=== PATIENT | female | born 2000 | race Caucasian/White ===

== ENCOUNTER 2022-08-20 11:53 | Emergency (ER) | payer OTHER, SELFPAY ==
[2022-08-20] VITALS (9 sets, daily range): BP systolic 90–116; BP diastolic 54–71; PULSE 67–89; RESP 18; TEMP 36.6; O2SAT 97–99
--- NOTE | 2022-08-20 12:53 | DI.US.S_ITS ---
PROCEDURE: US PELVIC COMPLETE INDICATIONS: PELVIC PAIN. HISTORY OF CHLAMYDIA. TECHNIQUE: Real-time scanning was performed of the pelvic organs, with image documentation. Additional endovaginal scanning was necessary due to incomplete visualization of the adnexal and endometrial structures by transabdominal scanning. COMPARISON: None. FINDINGS: Uterus: Uterus is retroverted and normal in size at 6.4 x 3.2 x 4.2 cm. The myometrium is homogeneous. The endometrium measures 6.1 mm combined thickness. Ovaries: The right ovary measures 3.3 x 2.3 x 2.4 cm, with a calculated ovarian volume of 9.6 cc. The left ovary measures 2.4 x 2.2 x 2.5 cm, with a calculated ovarian volume of in 6.6 cc. The ovaries have a normal sonographic appearance. Greater than 12 follicles can be seen in each ovary. No adnexal masses are seen. Other: No pathologic free abdominal or pelvic fluid. IMPRESSION: Greater than 12 follicles are noted bilaterally, otherwise unremarkable. We strive to produce accurate, complete, and clear reports of imaging services. To assist us in improving patient care, this report was composed using standard report templates and voice recognition software. Therefore, it may contain abnormal punctuation, insertions and/or omissions. Occasional wrong-word or sound-alike substitutions may occur. Though we review the report and make efforts to correct it, we do recommend that the report be read carefully in proper context to recognize any text inaccuracies. Dictated by: Krissy Madrigal M.D. on 08/20/2022 at 14:17 Approved by: Krissy Madrigal M.D. on 08/20/2022 at 14:19
--- NOTE | 2022-08-20 12:54 | DI.CT.S_ITS ---
PROCEDURE: CT ABDOMEN PELVIS W CON INDICATIONS: LLQ, pelvic pain TECHNIQUE: After the administration of intravenous contrast, axial sections acquired from the lung bases to the pubic symphysis. Coronal and sagittal reformats were performed. For radiation dose reduction, the following was used: automated exposure control, adjustment of mA and/or kV according to patient size. COMPARISON: None. FINDINGS: Image quality: Excellent. Lung bases: Unremarkable. Heart: No significant findings. ABDOMEN: Liver: Unremarkable. Gallbladder: Unremarkable. Biliary ducts: Unremarkable. Pancreas: Unremarkable. Spleen: Unremarkable. Adrenal Glands: Unremarkable. Kidneys and Ureters: Unremarkable. Stomach and Bowel: There is no bowel obstruction. No gastric or small bowel wall thickening. Fecal stasis throughout the colon is seen. Appendix is visualized in right lower quadrant abdomen and is normal in size and appearance. No abscess collection. Peritoneum: No abnormal intraperitoneal fluid. No free air. Ventral Wall: No hernias. Abdominal Nodes: No retroperitoneal or mesenteric adenopathy by size criteria. Vessels: Aorta and inferior vena cava are normal in size. PELVIS: Pelvic Organs: Small bilateral ovarian cysts/dominant follicles are noted. Uterus is within normal limits. Bladder: Unremarkable. Pelvic Nodes: No enlarged lymph nodes. Miscellaneous: No hernias are seen. Bones: No suspicious bony lesions. No acute vertebral body compression fracture. IMPRESSION: 1. No bowel obstruction or abnormal bowel wall thickening. Normal appendix. Mild constipation. No abscess collection. No free fluid or free air. 2. No nephrolithiasis or hydronephrosis. No hydroureter. Normal appearing urinary bladder. 3. Suggestion of small bilateral ovarian cysts versus dominant follicles. Please correlate with ultrasound of pelvic findings. Dictated by: Scotty Cain M.D. on 08/20/2022 at 13:40 Approved by: Scotty Cain M.D. on 08/20/2022 at 13:53
[2022-08-20 13:07] LABS: Add Manual Diff / Slide Review NO; Basophils Absolute Auto 0 /uL (0-100); Basophils Percent Auto 0.6 % (0-2); Eosinophils Absolute Auto 100 /uL (0-450); Eosinophils Percent Auto 1.4 % (2-4); Hematocrit 37.9 % (36-46); Hemoglobin 13.1 g/dL (12.0-16.0); Lymphocytes Absolute Auto 1800 /uL (1100-4500); Lymphocytes Percent Auto 28.2 % (25-40); Mean Corpuscular HGB Conc 34.5 % (30-36); Mean Corpuscular Hemoglobin 29.6 PG (26-34); Mean Corpuscular Volume 85.8 fL (80-100); Monocytes Absolute Auto 600 /uL (0-900); Monocytes Percent Auto 8.6 % (3-14); Neutrophils Absolute Auto 4000 /uL (1500-7000); Neutrophils Percent Auto 61.2 % (50-75); Platelet Count 303 X10^3/uL (150-400); Red Blood Cell Count 4.42 X10^6/uL (4.0-5.2); Red Cell Distribution Width 12.1 % (11.6-14.8); White Blood Cell Count 6.5 X10^3/uL (4.5-11.0)
[2022-08-20 13:07] LABS: Appearance Urine UA CLEAR; Bilirubin Urine UA NEGATIVE (NEGATIVE); Color Urine UA ORANGE; Glucose Urine UA TRACE g/dL (Negative); Ketones Urine UA NEGATIVE (NEGATIVE); Leukocyte Esterase Urine UA NEGATIVE (NEGATIVE); Nitrite Urine UA POSITIVE (Negative); Occult Blood Urine UA NEGATIVE (Negative); Protein Urine UA TRACE (Negative); Specific Gravity Urine UA <=1.005 (1.000-1.035)
[2022-08-20 13:22] LABS: Alanine Aminotransferase 19 IU/L (<35); Albumin 4.4 g/dL (3.5-5.0); Albumin Globulin Ratio 1.5 (1.0-2.8); Alkaline Phosphatase 54 U/L (38-126); Aspartate Aminotransferase 30 IU/L (14-36); BUN Creatinine Ratio 9.9 (6-22); Bilirubin Total 0.9 mg/dL (0.2-1.3); Blood Urea Nitrogen 7 mg/dL (7-17); Calcium 8.5 mg/dL (8.4-10.2); Carbon Dioxide 25 mmol/L (22-32); Chloride 105 mmol/L (98-107); Estimated Glomerular Filt Rate > 60 mL/min (>60); Glucose 78 mg/dL (70-100); HEMOLYSIS 15 (0-50); Lipase 63 U/L (23-300); Potassium 3.9 mmol/L (3.4-5.1); Sodium 137 mmol/L (137-145); Total Protein 7.4 g/dL (6.3-8.2)
[2022-08-20 13:26] LABS: C-Reactive Protein Quant < 0.5 mg/dL (<1.0)
[2022-08-20 13:32] LABS: Bacteria Urine Few (2-10); RBC Urine None Seen (0-5/HPF); WBC Urine None Seen (0-5/HPF)
[2022-08-20 13:33] LABS: Culture Indicated Urine Specimen Cultured; Squamous Epithelial Cell Urine 1-5 /HPF (0-5/HPF)
[2022-08-20 14:17] LABS: Erythrocyte Sedimentation Rate 5 MM/HR (0-20)
[2022-08-20] MEDS: KETOROLAC 30 MG/ML VIAL 15 MG IV (14:52)
--- NOTE | 2022-08-20 16:33 | ED_ITS ---
HPI - Abdominal Pain <Erika Malcolm PA-C - Last Filed: 08/20/22 16:56> General Chief Complaint: Abdominal Pain Stated Complaint: sharp pain in LT lower Quad Time Seen by Provider: 08/20/22 12:32 Source: patient Mode of arrival: Ambulatory History of Present Illness HPI narrative: 22-year-old female with past medical history chlamydia infection presents to the ED with left-sided pelvic pain, white vaginal discharge. Patient was seen for urinary symptoms 3 days ago by her doctor, diagnosed with a UTI and prescribed antibiotics for 3 days. Patient's left-sided pelvic pain started this morning, however patient says that she is had the white vaginal discharge for several weeks. Patient does endorse unprotected sex. Patient states she has had a chlamydia infection in 2019 and was treated with antibiotics for it. Patient denies fever, chills, nausea, vomiting, flank pain, lightheadedness, dizziness, syncope. Patient's LMP was 08/02/2022, patient states it was a shorter than usual period. Patient is concern about sexually transmitted disease, PID. Related Data Previous Rx's Medication Instructions Recorded doxycycline hyclate 100 mg capsule 100 mg PO BID 14 days #28 caps 08/20/22 metronidazole 500 mg tablet 500 mg PO BID 14 days #28 tabs 08/20/22 Allergies Allergy/AdvReac Type Severity Reaction Status Date / Time No Known Drug Allergies Allergy Verified 08/20/22 12:21 Review of Systems <Erika Malcolm PA-C - Last Filed: 08/20/22 16:56> Review of Systems ROS Unobtainable: All systems reviewed & are unremarkable except as noted in HPI and below Constitutional Constitutional: Denies chills, Denies fatigue, Denies fever(s), Denies frequent falls, Denies lethargy and Denies weakness Eyes Eyes: Denies change in vision, Denies eye discharge, Denies irritation and Denies loss of vision ENT Ears, Nose, Mouth, and Throat: Denies change in voice, Denies dizziness, Denies neck pain, Denies sore throat and Denies throat swelling Cardiovascular Cardiovascular: Denies chest pain, Denies irregular heart rhythm, Denies lightheadedness, Denies palpitations, Denies dyspnea, Denies dyspnea on exertion and Denies orthopnea Respiratory Respiratory: Denies cough, Denies dyspnea, Denies dyspnea on exertion and Denies wheezing Gastrointestinal Gastrointestinal: Denies abdominal pain, Denies change in bowel habits, Denies diarrhea, Denies nausea and Denies vomiting Genitourinary Genitourinary: Denies hematuria, Reports pelvic pain, Denies flank pain, Denies urinary incontinence, Denies urinary urgency, Reports vaginal discharge and Reports vaginal pruritus Musculoskeletal Musculoskeletal: Denies back pain, Denies muscle weakness, Denies neck pain, Denies numbness and Denies tingling Integumentary/Breasts Skin/Breast: Denies pruritus, Denies erythema, Denies rash and Denies wounds Neurologic Neurologic: Denies behavioral changes, Denies confusion, Denies dizziness, Denies frequent falls, Denies loss of vision, Denies numbness, Denies tingling and Denies weakness Psychiatric Psychiatric: Denies anxiety, Denies behavioral changes, Denies confusion, Denies depression, Denies homicidal ideation and Denies suicidal ideation Endocrine Endocrine: Denies fatigue, Denies flushing and Denies palpitations Hematologic/Lymphatic Hematologic/Lymphatic: Denies easy bruising Allergic/Immunologic Allergic/Immunologic: Denies urticaria, Denies throat swelling and Denies wheezing Patient History <Erika Malcolm PA-C - Last Filed: 08/20/22 16:56> Social History Smoking Status: Current every day smoker Smoking Status: Current every day smoker alcohol intake frequency: a few times a month Substance Use Type: does not use Exam <Erika Malcolm PA-C - Last Filed: 08/20/22 16:56> Narrative Exam Narrative: Const General:?cooperative, healthy appearing and comfortable [facility] Head:?normal to inspection Ears:?hearing grossly normal bilaterally Nose:?external nose normal Face and sinus:?normal facial exam and sinuses nontender Mouth:?oral mucosae normal Throat:?posterior oropharynx normal Eyes General:?appearance normal, both eyes and all related structures Neck Neck:?normal visual inspection and no lymphadenopathy noted Resp Effort & Inspection:?normal respiratory effort Auscultation:?clear to auscultation bilaterally Cardio Rate:?regular rate Rhythm:?regular rhythm GI Abdomen is soft, nondistended, tender to palpation in the left lower quadrant. No CVA tenderness. Positive for significant cervical motion tenderness. There is copious white discharge on speculum exam. No vaginal tears or lacerations. No signs of bleeding. Neuro General:?patient alert, patient awake and patient oriented x3 Initial Vital Signs Initial Vital Signs: Vital Signs Temperature 98 F 08/20/22 12:16 Pulse Rate 89 08/20/22 12:16 Respiratory Rate 18 08/20/22 12:16 Blood Pressure 116/65 08/20/22 12:16 Pulse Oximetry 98 08/20/22 12:16 Oxygen Delivery Method Room Air 08/20/22 12:16 <Dayana Bravo DO - Last Filed: 08/21/22 15:13> Initial Vital Signs Initial Vital Signs: Vital Signs Temperature 98 F 08/20/22 12:16 Pulse Rate 89 08/20/22 12:16 Respiratory Rate 18 08/20/22 12:16 Blood Pressure 116/65 08/20/22 12:16 Pulse Oximetry 98 08/20/22 12:16 Oxygen Delivery Method Room Air 08/20/22 12:16 Course <Erika Malcolm PA-C - Last Filed: 08/20/22 16:56> Orders Ordered: Discontinued Medications Ceftriaxone Sodium (Ceftriaxone 1,000 Mg Vial) 500 mg IM NOW ONE Stop: 08/20/22 16:29 Last Admin: 08/20/22 17:01 Dose: 500 mg Documented By: JOSH Ketorolac Tromethamine (Ketorolac 30 Mg/Ml Vial) 15 mg IV NOW ONE Stop: 08/20/22 14:07 Last Admin: 08/20/22 14:52 Dose: 15 mg Documented By: AT Lidocaine HCl (Lidocaine 1% (Pf) 5 Ml) 2.1 ml INJ NOW ONE Stop: 08/20/22 16:29 Last Admin: 08/20/22 17:02 Dose: 2.1 ml Documented By: JOSH Ondansetron HCl (Ondansetron 4 Mg Odt) 4 mg PO NOW PRN PRN Reason: Nausea And Vomiting Ondansetron HCl (Ondansetron 4 Mg/2 Ml Inj) 4 mg IV NOW PRN PRN Reason: Nausea And Vomiting Vital Signs Vital signs: Vital Signs - 8 hr 08/20/22 12:16 08/20/22 13:36 08/20/22 13:37 Temperature 98 F Pulse Rate 89 85 88 Respiratory Rate 18 Blood Pressure 116/65 Pulse Oximetry 98 99 98 Oxygen Delivery Method Room Air 08/20/22 13:37 08/20/22 14:00 08/20/22 14:00 Temperature Pulse Rate 81 Respiratory Rate Blood Pressure 114/71 90/54 L Pulse Oximetry 99 Oxygen Delivery Method 08/20/22 14:30 08/20/22 14:30 08/20/22 15:25 Temperature Pulse Rate 74 Respiratory Rate Blood Pressure 96/55 L 100/62 Pulse Oximetry 98 Oxygen Delivery Method 08/20/22 15:25 08/20/22 15:30 08/20/22 15:30 Temperature Pulse Rate 80 75 Respiratory Rate Blood Pressure 101/67 Pulse Oximetry 98 97 Oxygen Delivery Method Room Air <Dayana Bravo, - Last Filed: 08/21/22 15:13> Orders Ordered: Discontinued Medications Ceftriaxone Sodium (Ceftriaxone 1,000 Mg Vial) 500 mg IM NOW ONE Stop: 08/20/22 16:29 Last Admin: 08/20/22 17:01 Dose: 500 mg Documented By: JOSH Ketorolac Tromethamine (Ketorolac 30 Mg/Ml Vial) 15 mg IV NOW ONE Stop: 08/20/22 14:07 Last Admin: 08/20/22 14:52 Dose: 15 mg Documented By: AT Lidocaine HCl (Lidocaine 1% (Pf) 5 Ml) 2.1 ml INJ NOW ONE Stop: 08/20/22 16:29 Last Admin: 08/20/22 17:02 Dose: 2.1 ml Documented By: JOSH Ondansetron HCl (Ondansetron 4 Mg Odt) 4 mg PO NOW PRN PRN Reason: Nausea And Vomiting Ondansetron HCl (Ondansetron 4 Mg/2 Ml Inj) 4 mg IV NOW PRN PRN Reason: Nausea And Vomiting Vital Signs Vital signs: Vital Signs - 8 hr 08/20/22 12:16 08/20/22 13:36 08/20/22 13:37 Temperature 98 F Pulse Rate 89 85 88 Respiratory Rate 18 Blood Pressure 116/65 Pulse Oximetry 98 99 98 Oxygen Delivery Method Room Air 08/20/22 13:37 08/20/22 14:00 08/20/22 14:00 Temperature Pulse Rate 81 Respiratory Rate Blood Pressure 114/71 90/54 L Pulse Oximetry 99 Oxygen Delivery Method 08/20/22 14:30 08/20/22 14:30 08/20/22 15:25 Temperature Pulse Rate 74 Respiratory Rate Blood Pressure 96/55 L 100/62 Pulse Oximetry 98 Oxygen Delivery Method 08/20/22 15:25 08/20/22 15:30 08/20/22 15:30 Temperature Pulse Rate 80 75 Respiratory Rate Blood Pressure 101/67 Pulse Oximetry 98 97 Oxygen Delivery Method Room Air MDM - Abdominal Pain <Hyma MICHA Malcolm - Last Filed: 08/20/22 16:56> Lab Data 08/20/22 13:00 08/20/22 13:00 Labs: Lab Results 08/20/22 08/20/22 08/20/22 Range/Units 12:51 12:51 13:00 WBC 6.5 (4.5-11.0) X10^3/uL RBC 4.42 (4.0-5.2) X10^6/uL Hgb 13.1 (12.0-16.0) g/dL Hct 37.9 (36-46) % MCV 85.8 (80-100) fL MCH 29.6 (26-34) PG MCHC 34.5 (30-36) % RDW 12.1 (11.6-14.8) % Plt Count 303 (150-400) X10^3/uL Neut % (Auto) 61.2 (50-75) % Lymph % (Auto) 28.2 (25-40) % [place] % (Auto) 8.6 (3-14) % Eos % (Auto) 1.4 L (2-4) % Baso % (Auto) 0.6 (0-2) % Neut # (Auto) 4000 (5891-2401) /uL Lymph # (Auto) 1800 (9908-0784) /uL [place] # (Auto) 600 (0-900) /uL Eos # (Auto) 100 (0-450) /uL Baso # (Auto) 0 (0-100) /uL ESR (0-20) MM/HR Sodium (137-145) mmol/L Potassium (3.4-5.1) mmol/L Chloride (98-107) mmol/L Carbon Dioxide (22-32) mmol/L BUN (7-17) mg/dL Creatinine (0.52-1.04) mg/dL Estimated GFR (>60) mL/min BUN/Creatinine Ratio (6-22) Glucose (70-100) mg/dL Calcium (8.4-10.2) mg/dL Total Bilirubin (0.2-1.3) mg/dL AST (14-36) IU/L ALT (<35) IU/L Alkaline Phosphatase (38-126) U/L C-Reactive Protein (<1.0) mg/dL Total Protein (6.3-8.2) g/dL Albumin (3.5-5.0) g/dL Globulin (1.7-4.1) g/dL Albumin/Globulin Ratio (1.0-2.8) Lipase (23-300) U/L Urine Color [place] Urine Appearance Clear Urine pH 7.0 (4.5-8.0) Ur Specific [place] <=1.005 (1.000-1.035) Urine Protein Trace H (Negative) Urine Glucose (UA) Trace H (Negative) g/dL Urine Ketones Negative (NEGATIVE) Urine Occult Blood Negative (Negative) Urine Nitrate Positive H (Negative) Urine Bilirubin Negative (NEGATIVE) Urine Urobilinogen 4.0 H (0.2) E.U./dL Ur Leukocyte Esterase Negative (NEGATIVE) Urine RBC None seen (0-5/HPF) Urine WBC None seen (0-5/HPF) Ur Squamous Epith Cells 1-5 /hpf (0-5/HPF) Urine Bacteria Few (2-10) H (None) Ur Culture Indicated? Specimen cultured Ur Chlamydia DNA (PCR) Not detected N gonorrhoeae DNA (PCR) Not detected 08/20/22 08/20/22 08/20/22 Range/Units 13:00 13:00 13:00 WBC (4.5-11.0) X10^3/uL RBC (4.0-5.2) X10^6/uL Hgb (12.0-16.0) g/dL Hct (36-46) % MCV (80-100) fL MCH (26-34) PG MCHC (30-36) % RDW (11.6-14.8) % Plt Count (150-400) X10^3/uL Neut % (Auto) (50-75) % Lymph % (Auto) (25-40) % [place] % (Auto) (3-14) % Eos % (Auto) (2-4) % Baso % (Auto) (0-2) % Neut # (Auto) (8755-1773) /uL Lymph # (Auto) (5880-8289) /uL [place] # (Auto) (0-900) /uL Eos # (Auto) (0-450) /uL Baso # (Auto) (0-100) /uL ESR 5 (0-20) MM/HR Sodium 137 (137-145) mmol/L Potassium 3.9 (3.4-5.1) mmol/L Chloride 105 (98-107) mmol/L Carbon Dioxide 25 (22-32) mmol/L BUN 7 (7-17) mg/dL Creatinine 0.71 (0.52-1.04) mg/dL Estimated GFR > 60 (>60) mL/min BUN/Creatinine Ratio 9.9 (6-22) Glucose 78 (70-100) mg/dL Calcium 8.5 (8.4-10.2) mg/dL Total Bilirubin 0.9 (0.2-1.3) mg/dL AST 30 (14-36) IU/L ALT 19 (<35) IU/L Alkaline Phosphatase 54 (38-126) U/L C-Reactive Protein < 0.5 (<1.0) mg/dL Total Protein 7.4 (6.3-8.2) g/dL Albumin 4.4 (3.5-5.0) g/dL Globulin 3.0 (1.7-4.1) g/dL Albumin/Globulin Ratio 1.5 (1.0-2.8) Lipase 63 (23-300) U/L Urine Color Urine Appearance Urine pH (4.5-8.0) Ur Specific [place] (1.000-1.035) Urine Protein (Negative) Urine Glucose (UA) (Negative) g/dL Urine Ketones (NEGATIVE) Urine Occult Blood (Negative) Urine Nitrate (Negative) Urine Bilirubin (NEGATIVE) Urine Urobilinogen (0.2) E.U./dL Ur Leukocyte Esterase (NEGATIVE) Urine RBC (0-5/HPF) Urine WBC (0-5/HPF) Ur Squamous Epith Cells (0-5/HPF) Urine Bacteria (None) Ur Culture Indicated? Ur Chlamydia DNA (PCR) N gonorrhoeae DNA (PCR) Point of care testing: Point of Care Testing Test Results Negative MDM Narrative Medical decision making narrative: 22-year-old female with past medical history chlamydia infection presents to the ED with left-sided pelvic pain, white vaginal discharge. Concern for STI versus BV versus Trichomoniasi, versus yeast infection versus PID versus rupture ovar maikol cyst versus versus intrauterine versus UTI versus pyelonephritis versus other intra-abdominal pathology versus other. Obtained labs, UA, urine hCG, CT abdomen pelvis, pelvic ultrasound. Urine hCG negative. UA positive for UTI. CT abdomen pelvis and pelvic ultrasound without acute findings. Pelvic exam significant for cervical motion tenderness, copious white discharge. Obtained cervical swabs, will inform patient when results come back. Will treat empirically for PID with ceftriaxone, doxycycline, metronidazole. Recommend no unprotected sex for the next 2 weeks. Recommend treatment for sexually partners in the last 60 days. ED return precautions discussed with patient. Patient verbalized understanding. <Dayana Bravo, - Last Filed: 08/21/22 15:13> Lab Data Labs: Lab Results 08/20/22 08/20/22 08/20/22 Range/Units 12:51 12:51 13:00 WBC 6.5 (4.5-11.0) X10^3/uL RBC 4.42 (4.0-5.2) X10^6/uL Hgb 13.1 (12.0-16.0) g/dL Hct 37.9 (36-46) % MCV 85.8 (80-100) fL MCH 29.6 (26-34) PG MCHC 34.5 (30-36) % RDW 12.1 (11.6-14.8) % Plt Count 303 (150-400) X10^3/uL Neut % (Auto) 61.2 (50-75) % Lymph % (Auto) 28.2 (25-40) % [place] % (Auto) 8.6 (3-14) % Eos % (Auto) 1.4 L (2-4) % Baso % (Auto) 0.6 (0-2) % Neut # (Auto) 4000 (8943-4312) /uL Lymph # (Auto) 1800 (6991-4218) /uL [place] # (Auto) 600 (0-900) /uL Eos # (Auto) 100 (0-450) /uL Baso # (Auto) 0 (0-100) /uL ESR (0-20) MM/HR Sodium (137-145) mmol/L Potassium (3.4-5.1) mmol/L Chloride (98-107) mmol/L Carbon Dioxide (22-32) mmol/L BUN (7-17) mg/dL Creatinine (0.52-1.04) mg/dL Estimated GFR (>60) mL/min BUN/Creatinine Ratio (6-22) Glucose (70-100) mg/dL Calcium (8.4-10.2) mg/dL Total Bilirubin (0.2-1.3) mg/dL AST (14-36) IU/L ALT (<35) IU/L Alkaline Phosphatase (38-126) U/L C-Reactive Protein (<1.0) mg/dL Total Protein (6.3-8.2) g/dL Albumin (3.5-5.0) g/dL Globulin (1.7-4.1) g/dL Albumin/Globulin Ratio (1.0-2.8) Lipase (23-300) U/L Urine Color [place] Urine Appearance Clear Urine pH 7.0 (4.5-8.0) Ur Specific [place] <=1.005 (1.000-1.035) Urine Protein Trace H (Negative) Urine Glucose (UA) Trace H (Negative) g/dL Urine Ketones Negative (NEGATIVE) Urine Occult Blood Negative (Negative) Urine Nitrate Positive H (Negative) Urine Bilirubin Negative (NEGATIVE) Urine Urobilinogen 4.0 H (0.2) E.U./dL Ur Leukocyte Esterase Negative (NEGATIVE) Urine RBC None seen (0-5/HPF) Urine WBC None seen (0-5/HPF) Ur Squamous Epith Cells 1-5 /hpf (0-5/HPF) Urine Bacteria Few (2-10) H (None) Ur Culture Indicated? Specimen cultured Ur Chlamydia DNA (PCR) Not detected N gonorrhoeae DNA (PCR) Not detected 08/20/22 08/20/22 08/20/22 Range/Units 13:00 13:00 13:00 WBC (4.5-11.0) X10^3/uL RBC (4.0-5.2) X10^6/uL Hgb (12.0-16.0) g/dL Hct (36-46) % MCV (80-100) fL MCH (26-34) PG MCHC (30-36) % RDW (11.6-14.8) % Plt Count (150-400) X10^3/uL Neut % (Auto) (50-75) % Lymph % (Auto) (25-40) % [place] % (Auto) (3-14) % Eos % (Auto) (2-4) % Baso % (Auto) (0-2) % Neut # (Auto) (2114-8897) /uL Lymph # (Auto) (1249-9631) /uL [place] # (Auto) (0-900) /uL Eos # (Auto) (0-450) /uL Baso # (Auto) (0-100) /uL ESR 5 (0-20) MM/HR Sodium 137 (137-145) mmol/L Potassium 3.9 (3.4-5.1) mmol/L Chloride 105 (98-107) mmol/L Carbon Dioxide 25 (22-32) mmol/L BUN 7 (7-17) mg/dL Creatinine 0.71 (0.52-1.04) mg/dL Estimated GFR > 60 (>60) mL/min BUN/Creatinine Ratio 9.9 (6-22) Glucose 78 (70-100) mg/dL Calcium 8.5 (8.4-10.2) mg/dL Total Bilirubin 0.9 (0.2-1.3) mg/dL AST 30 (14-36) IU/L ALT 19 (<35) IU/L Alkaline Phosphatase 54 (38-126) U/L C-Reactive Protein < 0.5 (<1.0) mg/dL Total Protein 7.4 (6.3-8.2) g/dL Albumin 4.4 (3.5-5.0) g/dL Globulin 3.0 (1.7-4.1) g/dL Albumin/Globulin Ratio 1.5 (1.0-2.8) Lipase 63 (23-300) U/L Urine Color Urine Appearance Urine pH (4.5-8.0) Ur Specific [place] (1.000-1.035) Urine Protein (Negative) Urine Glucose (UA) (Negative) g/dL Urine Ketones (NEGATIVE) Urine Occult Blood (Negative) Urine Nitrate (Negative) Urine Bilirubin (NEGATIVE) Urine Urobilinogen (0.2) E.U./dL Ur Leukocyte Esterase (NEGATIVE) Urine RBC (0-5/HPF) Urine WBC (0-5/HPF) Ur Squamous Epith Cells (0-5/HPF) Urine Bacteria (None) Ur Culture Indicated? Ur Chlamydia DNA (PCR) N gonorrhoeae DNA (PCR) Point of care testing: Point of Care Testing Test Results Negative Discharge Plan Departure Patient Disposition: Home Clinical Impression: Pelvic inflammatory disease (PID) Instructions: DI for Pelvic Inflammatory Disease (PID) Activity Restrictions/Additional Instructions: You were evaluated in the ED today for left-sided pelvic pain. Your ultrasound and CT did not show any acute findings. Your physical exam did show cervical tenderness, it is likely that you have pelvic inflammatory disease that might be contributing to these symptoms. You have been tested for bacterial vaginosis, trichomoniasis, yeast infection, gonorrhea and chlamydia. We will inform you when we get the results back. Please be advised to refrain from unprotected sex for the next 2 weeks, inform your sexual partners from the last 60 days so they can be treated as well. Return to the ED if your symptoms worsen, you are persistently vomiting, you have fever and chills. Prescriptions: New doxycycline hyclate 100 mg capsule 100 mg PO BID 14 Days Qty: 28 0RF metronidazole 500 mg tablet 500 mg PO BID 14 Days Qty: 28 0RF Referrals: ProviderYessy [Primary Care Provider] - Stand Alone Forms: Patient Portal/API, Work Release Note <Dayana Bravo DO - Last Filed: 08/21/22 15:13> Cosign ED Attending [place] Attestation: I was immediately available in the department for consultation. Documentation has been reviewed.
[2022-08-20] MEDS: cefTRIAXone 1,000 MG VIAL 500 MG IM (17:01)
[2022-08-20] MEDS: LIDOCAINE 1% (PF) 5 ML 2.1 ML INJ (17:02)
[2022-08-20 19:42] LABS: Urine N gonorrhoeae NOT DETECTED
[2022-08-20 20:11] LABS: Urine Chlamydia NOT DETECTED
== END 2022-08-20 17:13 | disposition home or self-care (01) ==
PROVIDERS: Emergency Medicine; Emergency Provider Student in an Organized Health Care Education/Training Program
DX: N73.9 Female pelvic inflammatory disease, unspecified (principal); R10.2 Pelvic and perineal pain
CPT/HCPCS: 74177; 76830; 76856; 80053; 81001; 81025; 83690; 85025; 85651; 86140; 87070; 87086; 87205; 87210; 87491; 87591; 93975; 96372; 96374; 99284; J0696; J1885; Q9967